=== PATIENT | female | born 1955 | race Caucasian/White ===

== ENCOUNTER 2018-03-01 10:17 | Inpatient (IN) | payer OTHER ==
[~2018-03-01] VITALS: Ht 167.6 cm; Wt 76.4 kg
--- NOTE | ~2018-03-01 | CN ---
PATIENT NAME:SOFIE GONZALEZ MEDICAL RECORD: [id number] : 51 LOCATION:D.MS [id number] ADMIT DATE: 03/01/18 ACCOUNT: [id number] CONSULTING PHYSICIAN: KEM OLIVEIRA MD REFERRING PHYSICIAN: TREY FOURNIER MD DATE OF CONSULTATION: 03/02/2018 CONSULT REQUESTING PHYSICIAN: Trey Fournier MD REASON FOR CONSULTATION: Cavitary lesion, right lower lobe. HISTORY OF PRESENT ILLNESS: Ms. Sims is a 62-year-old female, who has a history of asthma, allergies, and history of scarlet fever as a child. The patient has history of diverticulosis. She follows with Dr. Dent. She is complaining of right upper quadrant, right lower quadrant pain. There is no associated nausea, vomiting, no diarrhea. The patient came into the ER. She has a CT scan of the abdomen and the right lower lobe showed cavitary lesion, which prompted CT scan of the chest. According to the patient, she has been diagnosed with this cavitary lesion 15 years ago. It was followed up with another CT scan after 5-6 months and the lesion was stable. No followup has been done since then. The patient has moved from [place], [place] to [facility]. She denies any TB exposure. There is no foreign travel. REVIEW OF SYSTEMS: As in history of present illness. PAST MEDICAL HISTORY: 1. Scarlet fever. 2. Asthma. 3. History of allergies. 4. History of diverticulosis. 5. Hypercholesterolemia. 6. Osteoporosis. ALLERGIES: She is allergic to MORPHINE. MEDICATIONS: Revetto is reviewed. She is on albuterol inhaler p.r.n. and she is on QVAR inhaler 2 puffs 2 times a day. PERSONAL AND SOCIAL HISTORY: The patient never smoked. She is a nondrinker. FAMILY HISTORY: Significant for cardiovascular disease and cancer. PHYSICAL EXAMINATION: GENERAL: Now, the patient is lying comfortably in bed. She is not in acute distress. VITAL SIGNS: The blood pressure is 150/88, pulse is 71, respiration is 18, temperature 98.8, SpO2 is 96% on room air. HEENT: Conjunctivae are pink. Sclerae are not icteric. NECK: Supple, no JVD. CHEST: The chest excursion minimal on both sides. There is no wheezing, no rales. HEART: Rate and rhythm regular, normal sound, no murmur. ABDOMEN: Soft, bowel sounds present. No hepatosplenomegaly. CONSULT REPORT [id number] SOFIE GONZALEZ RECTAL: Deferred. EXTREMITIES: No cyanosis, no clubbing, no pedal edema. SKIN: Warm, normal turgor. CENTRAL NERVOUS SYSTEM: The patient is awake and alert. There is no obvious skin abnormality. The gait was not tested. IMAGING: CT scan of the chest: There is a 1.4 x 1.5 cm cavitary lesion in the right lower lobe. There is surrounding ground-glass opacities. The rest of the chest is unremarkable. There is no lymphadenopathy. OTHER LABORATORY DATA: CBC: The WBC is 13.2, hemoglobin is 15.1, hematocrit is 44.2, the platelet count 231. Chemistry: Sodium 140, potassium 3.7, BUN is 10, creatinine 0.9, glucose 114. IMPRESSION: 1. Cavitary lung lesion, right lower lobe, diagnosed 15 years ago and the followup CT scan was done within 6 months and that was stable. Since then, she has no followup. That was followed by her PCP in [place]. 2. Asthma without acute exacerbation. 3. Acute diverticulitis. 4. Leukocytosis secondary to diverticulitis. 5. History of allergy. 6. History of Scarlet fever. RECOMMENDATION: 1. Continue Levaquin. I will add Flagyl for anaerobes and diverticulitis. 2. The patient can use her own QVAR two puffs b.i.d. 3. Detailed discussion with the patient and her . They will get the previous CT scan record from her PCP for comparison. If the lesion is increasing in size, we will consider PET scan as outpatient. Dr. Fournier, thank you for involving me in the care of Ms. Sims. TRANSINT:[id number] Voice Confirmation ID: [id number] DOCUMENT ID: [id number] KEM OLIVEIRA MD at 1234 CC: [id number] DICTATION DATE: 03/02/18 1529 PHARMACY SERVICE ASSOCIATE: 03/02/18 1608 DIS IN 03/03/18 [id number] [place] [address]
--- NOTE | ~2018-03-01 | MORECARE ---
CASE MANAGEMENT DISCHARGE SUMMARY PATIENT: SOFIE GONZALEZ UNIT: [id number] ADM DATE: 03/01/18 AGE: 62 : 53 SEX: F ROOM/BED: D.2226 AUTHOR: ELSA TRISTAN PHYSICIAN: REFERRING PHYSICIAN: TREY FOURNIER MD DATE OF SERVICE: 03/03/18 Discharge Plan Patient Name: SOFIE GONZALEZ Facility: [facility]:[place] : 1955 Planned Disposition: Home Anticipated Discharge Date: Discharge Date: Expected LOS: Initial Reviewer: [email or web address] Initial Review Date: 03/02/2018 Generated: 03/03/18 2:31 pm Comments DCP- Discharge Planning Updated by [email or web address]: Kasandra Jha on 03/03/18 12:[address] Patient Name: SOFIE GONZALEZ Encounter No: [id number] : 1955 Primary Insurance: AETNA PPO Anticipated DC Date: Planned Disposition: Home External Planned Provider: : DCP follow-up note: Patient and family in agreement with discharge plan. No changes to plan. Case management will follow and assist as needed. Kasandra Jha DCP- Discharge Planning Updated by [email or web address]: Kasandra Jha on 03/02/18 3:[address] Patient Name: SOFIE GONZALEZ Admission Status: ER Accout number: [id number] Admission Date: 03-01-2018 : 1955 Admission Diagnosis: Attending: TREY FOURNIER Current LOS: 1 Anticipated DC Date: Planned Disposition: Home Primary Insurance: AETNA PPO Discharge Planning Comments: CM met with patient to discuss discharge planning, she is alone in the room. States she lives with her . States she is independent with all ADL's and IADL's. States she does not have any DME or need any DME. States she does not need home health services. States Dr. Fournier has agreed to take her as his PCP. No needs identified at this time. CM will continue to follow and assist with discharge planning/needs. Clinical Nurse: Kasandra Jha DCPIA - Discharge Planning Initial Assessment Updated by [email or web address]: Kasandra Jha on 03/02/18 4:37 pm * Is the patient Alert and Oriented? Yes * How many steps to enter\exit or inside your home? 0/0 * PCP Dr. Michaud in [facility]. Now will be Dr. Fournier * Pharmacy [facility] on [address] and [facility] * Preadmission Environment Home with Family * ADLs Independent * Equipment None * List name and contact numbers for known caregivers / representatives who currently or will assist patient after discharge: Arik Beaulieu [facility] - [phone] * Verbal permission to speak to the caregivers and representatives has been obtained from the patient. Yes * Community resources currently utilized None * Additional services required to return to the preadmission environment? No * Can the patient safely return to the preadmission environment? Yes * Has this patient been hospitalized within the prior 30 days at any hospital? No Last DP export: 03/02/18 3:44 Patient Name: SOFIE GONZALEZ Page 86619 at 1331 All edits/amendments must be made on the electronic document DICTATION DATE: 03/03/18 1331 MIDDLE SCHOOL READING TEACHER: BRAVO 03/03/18 1331 RPT#: [id number] DC DATE: STATUS: ADM IN [facility] [address] [place] [address] END OF REPORT
--- NOTE | ~2018-03-01 | MORECARE ---
CASE MANAGEMENT DISCHARGE SUMMARY PATIENT: SOFIE GONZALEZ UNIT: [id number] ADM DATE: 03/01/18 AGE: 62 : 51 SEX: F ROOM/BED: D.2226 AUTHOR: ELSA TRISTAN PHYSICIAN: REFERRING PHYSICIAN: TREY FOURNIER MD DATE OF SERVICE: 03/04/18 Discharge Plan Patient Name: SOFIE GONZALEZ Facility: [facility]:[place] : 1955 Planned Disposition: Home Anticipated Discharge Date: Discharge Date: 03/03/2018 Expected LOS: 0 Initial Reviewer: [email or web address] Initial Review Date: 03/02/2018 Generated: 03/04/18 5:59 pm Comments DCP- Discharge Planning Updated by [email or web address]: Kasandra Jha on 03/03/18 12:[address] Patient Name: SOFIE GONZALEZ Encounter No: [id number] : 1955 Primary Insurance: AETNA PPO Anticipated DC Date: Planned Disposition: Home External Planned Provider: : DCP follow-up note: Patient and family in agreement with discharge plan. No changes to plan. Case management will follow and assist as needed. Kasandra Jha DCP- Discharge Planning Updated by [email or web address]: Kasandra Jha on 03/02/18 3:[address] Patient Name: SOFIE GONZALEZ Admission Status: ER Accout number: [id number] Admission Date: 03-01-2018 : 1955 Admission Diagnosis: Attending: TREY FOURNIER Current LOS: 1 Anticipated DC Date: Planned Disposition: Home Primary Insurance: AET[employer] PPO Discharge Planning Comments: CM met with patient to discuss discharge planning, she is alone in the room. States she lives with her . States she is independent with all ADL's and IADL's. States she does not have any DME or need any DME. States she does not need home health services. States Dr. Fournier has agreed to take her as his PCP. No needs identified at this time. CM will continue to follow and assist with discharge planning/needs. Cabin Furnishings Installer: Kasandra Jha DCPIA - Discharge Planning Initial Assessment Updated by [email or web address]: Kasandra Abhijeet on 03/02/18 4:37 pm * Is the patient Alert and Oriented? Yes * How many steps to enter\exit or inside your home? 0/0 * PCP Dr. Michaud in [facility]. Now will be Dr. Fournier * Pharmacy [facility] on [address] and [facility] * Preadmission Environment Home with Family * ADLs Independent * Equipment None * List name and contact numbers for known caregivers / representatives who currently or will assist patient after discharge: Arik Beaulieu [facility] [phone] * Verbal permission to speak to the caregivers and representatives has been obtained from the patient. Yes * Community resources currently utilized None * Additional services required to return to the preadmission environment? No * Can the patient safely return to the preadmission environment? Yes * Has this patient been hospitalized within the prior 30 days at any hospital? No Last DP export: 03/03/18 12:31 p Patient Name: SOFIE GONZALEZ Page 10402 at 1659 All edits/amendments must be made on the electronic document DICTATION DATE: 03/04/181658 INTRANET DEVELOPER: BRAVO 03/04/181658 RPT#: [id number] DC DATE:03/03/18 STATUS: DIS IN [facility] [address] [place] [address] END OF REPORT
--- NOTE | ~2018-03-01 | MORECARE ---
CASE MANAGEMENT DISCHARGE SUMMARY PATIENT: SOFIE GONZALEZ UNIT: [id number] ADM DATE: 03/01/18 AGE: 62 : 53 SEX: F ROOM/BED: D.2226 AUTHOR: KUN,DOC PHYSICIAN: REFERRING PHYSICIAN: TREY FOURNIER MD DATE OF SERVICE: 03/02/18 Discharge Plan Patient Name: SOFIE GONZALEZ Facility: [facility]:[place] : 1955 Planned Disposition: Home Anticipated Discharge Date: Discharge Date: Expected LOS: Initial Reviewer: [id number] Initial Review Date: 03/02/2018 Generated: 03/02/18 5:44 pm Comments DCP- Discharge Planning Updated by [email or web address]: Kasandra Jha on 03/02/18 3:[address] Patient Name: SOFIE GONZALEZ Admission Status: ER Accout number: [id number] Admission Date: 03-01-2018 : 1955 Admission Diagnosis: Attending: TREY FOURNIER Current LOS: 1 Anticipated DC Date: Planned Disposition: Home Primary Insurance: AETNA PPO Discharge Planning Comments: CM met with patient to discuss discharge planning, she is alone in the room. States she lives with her . States she is independent with all ADL's and IADL's. States she does not have any DME or need any DME. States she does not need home health services. States Dr. Fournier has agreed to take her as his PCP. No needs identified at this time. CM will continue to follow and assist with discharge planning/needs. Dispensing And Measuring Optician: Kasandra Jha DCPIA - Discharge Planning Initial Assessment Updated by [email or web address]: Kasandra Jha on 03/02/18 4:37 pm * Is the patient Alert and Oriented? Yes * How many steps to enter\exit or inside your home? 0/0 * PCP Dr. Michaud in [facility]. Now will be Dr. Fournier * Pharmacy [facility] on [address] and [facility] [address] * Preadmission Environment Home with Family * ADLs Independent * Equipment None * List name and contact numbers for known caregivers / representatives who currently or will assist patient after discharge: Arik Beaulieu - - [phone] * Verbal permission to speak to the caregivers and representatives has been obtained from the patient. Yes * Community resources currently utilized None * Additional services required to return to the preadmission environment? No * Can the patient safely return to the preadmission environment? Yes * Has this patient been hospitalized within the prior 30 days at any hospital? No Patient Name: SOFIE GONZALEZ Page 78683 at 1644 All edits/amendments must be made on the electronic document DICTATION DATE: 03/02/181643 CABLE SPLICER: BRAVO 03/02/181643 RPT#: [id number] DC DATE: STATUS: ADM IN [facility] [address] [place] [address] END OF REPORT
[2018-03-01] MEDS ORDERED: VENTOLIN HFA18 GM INH (10:29)
[2018-03-01] MEDS ORDERED: ZOCOR5 MG (10:30)
[2018-03-01 11:12] LABS: BASOPHILS 0.1 % (0-2); EOSINOPHILS 0.4 % (0-7); HEMATOCRIT 44.2 % (36.0-48.0); HEMOGLOBIN 15.1 g/dL (12-16); IMMATURE GRANULOCYTES 0.2 % (0-5); LYMPHOCYTES 18.4 % (15-50); MCHC 34.2 g/dL (31.0-37.0); MCV 87.7 fL (80.0-100.0); MEAN PLATELET VOLUME 9.9 fL (7.4-10.4); MONOCYTES 7.5 % (2-11); NEUTROPHILS 73.4 % (40-80); PLATELET COUNT 231 10x3/uL (130-400); RBC 5.04 10x6/uL (4.00-5.40); RDW 13.9 % (11.5-14.5); WBC 13.2 10x3/uL (4.8-10.8)
[2018-03-01 11:19] LABS: APPEARANCE CLEAR (CLEAR); BILIRUBIN NEGATIVE (NEGATIVE); COLOR YELLOW (YELLOW); GLUCOSE NEGATIVE (NEGATIVE); KETONE NEGATIVE (NEGATIVE); NITRITE NEGATIVE (NEGATIVE); PROTEIN NEGATIVE (NEGATIVE); UROBILINOGEN NORMAL (NORMAL)
[2018-03-01 11:21] LABS: ALBUMIN 3.9 g/dL (3.4-5.0); ALKALINE PHOSPHATASE 63 U/L (46-116); ALT (SGPT) 34 U/L (10-68); BILIRUBIN - TOTAL 0.53 mg/dL (0.2-1.3); CALC OSMOLALITY 278 mosm/kg (275-300); CALCIUM 9.2 mg/dL (8.5-10.1); CHLORIDE - SERUM 102 mmol/L (98-107); CREATININE - SERUM 0.9 mg/dL (0.6-1.3); GLUCOSE 114 mg/dL (74-106); POTASSIUM - SERUM 3.7 mmol/L (3.5-5.1); PROTEIN - SERUM 8.3 g/dL (6.4-8.2); SODIUM 140 mmol/L (136-145); UREA NITROGEN 10 mg/dL (7-18); eGFR NON AFRICAN AMERICAN 67 mL/min (90-120)
[2018-03-01 11:26] LABS: AMYLASE - SERUM 63 U/L (25-115); LIPASE 105 U/L (73-393); TROPONIN-I < 0.017 ng/mL (0.000-0.060)
[2018-03-01 14:00] VITALS: BP 166/97
[2018-03-01 15:00] VITALS: BP 172/93
[2018-03-01 18:11] VITALS: BP 163/103; Ht 167.6 cm; Wt 76.4 kg
[2018-03-01 20:00] VITALS: BP 167/103
[2018-03-02 05:59] LABS: BASOPHILS 0.1 % (0-2); EOSINOPHILS 1.2 % (0-7); HEMATOCRIT 39.4 % (36.0-48.0); HEMOGLOBIN 13.3 g/dL (12-16); IMMATURE GRANULOCYTES 0.1 % (0-5); LYMPHOCYTES 24.5 % (15-50); MCH 29.5 pg (26.0-34.0); MCHC 33.8 g/dL (31.0-37.0); MCV 87.4 fL (80.0-100.0); MEAN PLATELET VOLUME 9.6 fL (7.4-10.4); MONOCYTES 7.8 % (2-11); NEUTROPHILS 66.3 % (40-80); PLATELET COUNT 214 10x3/uL (130-400); RBC 4.51 10x6/uL (4.00-5.40); RDW 13.9 % (11.5-14.5)
[2018-03-02 06:00] VITALS: BP 146/90
[2018-03-02 06:02] LABS: WBC 8.1 10x3/uL (4.8-10.8)
[2018-03-02 06:16] LABS: CALC OSMOLALITY 282 mosm/kg (275-300); CALCIUM 8.3 mg/dL (8.5-10.1); CHLORIDE - SERUM 107 mmol/L (98-107); CREATININE - SERUM 0.7 mg/dL (0.6-1.3); GLUCOSE 120 mg/dL (74-106); POTASSIUM - SERUM 3.6 mmol/L (3.5-5.1); SODIUM 142 mmol/L (136-145); UREA NITROGEN 9 mg/dL (7-18); eGFR NON AFRICAN AMERICAN 89 mL/min (90-120)
[2018-03-02 08:46] VITALS: BP 163/94
[2018-03-02 12:30] VITALS: BP 150/88
[2018-03-02 15:45] VITALS: BP 164/98
[2018-03-02 20:00] VITALS: BP 165/94
[2018-03-03 04:24] VITALS: BP 150/86
[2018-03-03 05:02] LABS: BASOPHILS 0.2 % (0-2); EOSINOPHILS 1.9 % (0-7); HEMATOCRIT 38.9 % (36.0-48.0); HEMOGLOBIN 13.1 g/dL (12-16); IMMATURE GRANULOCYTES 0.3 % (0-5); LYMPHOCYTES 27.7 % (15-50); MCH 29.5 pg (26.0-34.0); MCHC 33.7 g/dL (31.0-37.0); MCV 87.6 fL (80.0-100.0); MEAN PLATELET VOLUME 9.7 fL (7.4-10.4); MONOCYTES 7.1 % (2-11); NEUTROPHILS 62.8 % (40-80); PLATELET COUNT 217 10x3/uL (130-400); RBC 4.44 10x6/uL (4.00-5.40); RDW 13.8 % (11.5-14.5); WBC 6.2 10x3/uL (4.8-10.8)
[2018-03-03 05:16] LABS: ALKALINE PHOSPHATASE 48 U/L (46-116); BILIRUBIN - TOTAL 0.54 mg/dL (0.2-1.3); CALC OSMOLALITY 284 mosm/kg (275-300); CARBON DIOXIDE 23.7 mmol/L (21.0-32.0); CHLORIDE - SERUM 109 mmol/L (98-107); CREATININE - SERUM 0.8 mg/dL (0.6-1.3); GLUCOSE 111 mg/dL (74-106); POTASSIUM - SERUM 3.7 mmol/L (3.5-5.1); PROTEIN - SERUM 6.7 g/dL (6.4-8.2); SODIUM 143 mmol/L (136-145); UREA NITROGEN 9 mg/dL (7-18); eGFR NON AFRICAN AMERICAN 76 mL/min (90-120)
[2018-03-03 05:24] LABS: ALT (SGPT) 23 U/L (10-68)
[2018-03-03 09:32] VITALS: BP 160/88
[2018-03-03] MEDS ORDERED: LEVAQUIN750 MG PO (11:30)
[2018-03-03] MEDS ORDERED: FLORAJEN3 CAPS460 MG PO (11:30)
[2018-03-03] MEDS ORDERED: HCTZ25 MG PO (11:30)
[2018-03-03] MEDS ORDERED: LISINOPRIL10 MG PO (11:30)
[2018-03-03] MEDS ORDERED: FLOVENT HFA 410.6 GM MDI (11:30)
[2018-03-03] MEDS ORDERED: FLAGYL500 MG PO (11:30)
== END 2018-03-03 13:55 | disposition home or self-care (01) | DRG 392 ==
LOC: D.ER 10:17 → D.EDHOLD 15:08 → D.MS 15:08
PROVIDERS: Family Medicine
DX: K57.32 Diverticulitis of large intestine without perforation or abscess without bleeding (principal); E78.5 Hyperlipidemia, unspecified; M81.0 Age-related osteoporosis without current pathological fracture; R91.1 Solitary pulmonary nodule; J45.909 Unspecified asthma, uncomplicated; I10 Essential (primary) hypertension

== ENCOUNTER → 2018-06-20 07:53 | Outpatient (CLI) | payer MEDICARE, OTHER ==
[2018-03-01 18:11] VITALS: BMI 27.1
[~2018-06-20 07:53] MED LIST: FLAGYL500 MG PO; FLORAJEN3 CAPS460 MG PO; FLOVENT HFA 410.6 GM MDI; HCTZ25 MG PO; LEVAQUIN750 MG PO; LISINOPRIL10 MG PO; VENTOLIN HFA18 GM INH; ZOCOR5 MG
== END | disposition home or self-care (01) ==
LOC: D.RT 07:53
DX: J45.909 Unspecified asthma, uncomplicated (principal)

== ENCOUNTER → 2019-09-18 12:03 | Outpatient (CLI) | payer MEDICARE, OTHER ==
[2018-03-01 18:11] VITALS: BMI 27.1
== END | disposition home or self-care (01) ==
LOC: D.CT 12:03
PROVIDERS: ATTEND Internal Medicine Pulmonary Disease
DX: R91.8 Other nonspecific abnormal finding of lung field (principal)

== ENCOUNTER 2019-09-21 10:08 | Day surgery (SDC) | payer MEDICARE, OTHER ==
[~2019-09-21] VITALS: Ht 167.6 cm; Wt 77.3 kg
--- NOTE | ~2019-09-21 | OP ---
PATIENT NAME: SOFIE GARCIA MEDICAL RECORD: [id number] :51 LOCATION:D.[facility] ADMISSION DATE: SURGEON: THOM PEREZ MD DATE OF OPERATION: 09/21/2019 PROCEDURE: EGD with balloon dilatation, EGD with biopsy, colonoscopy with biopsy, colonoscopy with polypectomy with hot biopsy forceps, colonoscopy with polyp ablation in the distal rectum. SCOPE: Olympus video gastroscope and Olympus video colonoscope. MEDICATIONS: Per TIVA anesthesia. Please see the anesthesiology log for the amount that was given. HISTORY AND PHYSICAL: Ms. Garcia is a very pleasant 64-year-old lady who presented to clinic with complaint of nausea, vomiting, gastroesophageal reflux disease symptoms, epigastric abdominal pain, and dysphagia. She will have an EGD this date. FINDINGS: Informed consent was given. The patient was made comfortable with anesthesia and after an adequate amount of sedation, she was placed on her left side. The endoscope was then advanced under direct visualization through the posterior pharyngeal area and advanced to the distal esophagus. At the distal esophageal area, an esophageal stricture was noted and a CRE Microvasive balloon was placed at this site and inflated to 60-Central African, held in place for 1 minute without complication. We then thoroughly examined the distal esophagus and found a few ulcerations as well as erosions in this area. Multiple biopsies were obtained. The patient also had a small hiatal hernia, which was noted both on direct and retroflexed views. On entering the stomach, the patient was noted to have 2 gastric polyps approximately 0.5 cm in size within the fundus and biopsies were taken. The cardia and fundal tissue had mild inflammation as well as the stomach body. We then advanced to the antral area where erosions and multiple ulcers were seen. No visible vessels were present and there was no active bleeding. A biopsy was taken for histopathology at the antral area and to check also for Helicobacter pylori. The duodenal bulb had erosions present. Biopsies were taken. We then advanced to the second part of the duodenum. Bile was present and mild duodenitis with inflammation, some mild erythema and edema was observed and biopsies were obtained. The scope was then withdrawn. IMPRESSION: 1. Distal esophageal stricture dilated to 60-Central African without complication. 2. A few esophageal ulcers without visible vessels, not actively bleeding. 3. Erosive esophagitis. Biopsies taken at the gastroesophageal junction. 4. Small hiatal hernia. 5. Two small 0.5 cm gastric polyps. Biopsies taken within the fundus. 6. Antral ulcerations without visible vessels, not actively bleeding. Biopsy taken for Helicobacter pylori and histopathology in the antral area. 7. Duodenal bulbar erosions, biopsied. 8. Mild duodenitis in the second part of the duodenum, biopsied. PLAN: 1. The patient is to follow reflux precautions stringently, both dietary and positional. She should avoid chocolate, tomato, citrus, caffeine, fatty foods, OPERATIVE REPORT [id number] SOFIE GARCIA peppermint if bothersome, not eat late at night and sit up for 2 hours after every meal. The patient will take omeprazole at 40 mg 1 p.o. q.a.m. and famotidine 40 mg 1 p.o. at bedtime for at least 2 months or until she is scoped. Prescriptions have been provided. 2. EGD in 8 weeks to document healing of ulcers. 3. Caution with anti-inflammatory drugs. COLONOSCOPY WITH POLYPECTOMY, COLONOSCOPY WITH BIOPSY, COLONOSCOPY WITH DISTAL RECTAL ABLATIONS: FINDINGS: After completion of the EGD part of the procedure, the patient was again positioned on her left side and medications were adjusted for her comfort and safety. The colonoscope was advanced to the cecum where the ileocecal valve and appendiceal orifice were identified. The prep was good to fair. Within the cecal area, 2 small 0.5 cm polyps were seen and were removed with hot biopsy forceps technique. We then proceeded from the cecum into the ascending colon where fairly normal tissue was observed. The transverse colon also had fairly normal tissue noted. Within the sigmoid colon at 20 cm at least 3 small areas of active diverticulitis was appreciated. There was some inflammation in this area and small biopsies were obtained. The rectum was significant for mild inflammation noted and biopsies were taken within this area. Also, noted were 2 very small polyps within the distal rectum and these were simply ablated. They appeared to be approximately 0.5 cm in size and most likely hyperplastic. Internal and external hemorrhoids were appreciated on final withdrawal of the scope. IMPRESSION: 1. Two small 0.5 cm cecal polyp removed with hot biopsy forceps technique. 2. Diverticulosis, most pronounced in the sigmoid area. 3. Approximately 3 small areas of active diverticulitis at 20 cm within the colon. 4. Mild inflammation noted at the same area at the surround of the active diverticulitis. A few careful biopsies were obtained. 5. Proctitis within the rectum, very mild, biopsied. 6. Two small distal rectal polyps ablated. PLAN: 1. For the active diverticulitis, Cipro 500 mg 1 p.o. b.i.d. for 10 days. 2. Flagyl 500 mg 1 p.o. t.i.d. times 10 days. 3. Probiotics daily. 4. Follow up clinic visit in 3 weeks as the patient has had at least 2 previous documented bouts of diverticulitis. 5. The patient will be asked to keep her diet very soft for about 5 days, avoid anti-inflammatory drugs for 14 days. Advance diet slowly as tolerated. TRANSINT:[id number] Voice Confirmation ID: [id number] DOCUMENT ID: [id number] OPERATIVE REPORT [id number] SOFIE GARCIA BRENDA MD CC: MALIKA STALEY MD and TREY VASQUEZ [id number] DICTATION DATE: 09/21/19 1316 GREY IRON MOLDER: 09/21/19 1618 [facility] 09/21/19 [facility] [address] [place] [address]
[~2019-09-21 10:08] MED LIST changes: +ZOCOR40 MG PO; -ZOCOR5 MG
[2019-09-21 10:53] LABS: HEMATOCRIT 48.5 % (36.0-48.0); HEMOGLOBIN 15.6 g/dL (12-16); MCH 29.1 pg (26.0-34.0); MCHC 32.2 g/dL (31.0-37.0); MCV 90.3 fL (80.0-100.0); MEAN PLATELET VOLUME 9.4 fL (7.4-10.4); RBC 5.37 10x6/uL (4.00-5.40); RDW 13.7 % (11.5-14.5); WBC 5.7 10x3/uL (4.8-10.8)
[2019-09-21 11:41] VITALS: BP 140/89; Ht 167.6 cm; Wt 77.3 kg
--- NOTE | 2019-09-21 15:30 | NUR ---
1310 IV DC'D. CATHETER TIP INTACT. NO BLEEDING AT SITE. BANDAID APPLIED. PT WAITING FOR DR PEREZ TO COME DISCUSS PROCEDURE RESULTS WITH HER. 1323 DR PEREZ TALKING WITH PT. BP HIGHER CURRENTLY. WILL RECHECK IN 30 MINUTES.
--- NOTE | 2019-09-21 15:34 | NUR ---
1358 SBP LOWER. DBP IS 95. PT AWARE OF BP READING AND STATES THAT SHE DIDN'T TAKE BP MEDICINE TODAY. I MENTIONED TO PT THAT I DID NOT SEE A BP MED ON HER HOME MED LIST. SHE STATED SHE COULDN'T REMEMBER THE NAME OF IT, BUT SHE WOULD TAKE IT WHEN SHE GOT HOME. STATED THAT SHE HAD TO EAT BEFORE SHE COULD TAKE BP MED. PT HAS MET CRITERIA FOR DISCHARGE.
== END 2019-09-21 14:10 | disposition home or self-care (01) ==
LOC: D.OPS 10:08
PROVIDERS: Anesthesiology; ATTEND Internal Medicine Gastroenterology
DX: R11.2 Nausea with vomiting, unspecified (principal); K21.9 Gastro-esophageal reflux disease without esophagitis; R10.13 Epigastric pain; R13.10 Dysphagia, unspecified; K63.5 Polyp of colon; K22.2 Esophageal obstruction; J45.909 Unspecified asthma, uncomplicated; K64.0 First degree hemorrhoids; K57.30 Diverticulosis of large intestine without perforation or abscess without bleeding; Z86.010 Personal history of colon polyps